=== PATIENT | male | born 1970 | race Asian ===

== ENCOUNTER 2016-07-10 19:55 | Emergency (ER) | payer BC ==
[~2016-07-10] VITALS: Ht 177.8 cm; Wt 95.3 kg
[2016-07-10 19:55] VITALS: BP 133/91; PULSE 78; RESP 18; TEMP 98.8; O2SAT 98
[2016-07-10] MEDS ORDERED: ACETAMINOPHEN 500 MG TABLET PO ONE (20:15)
[2016-07-10] MEDS ORDERED: NACL 0.9% 1,000 ML IV ONE (20:15)
[2016-07-10] MEDS ORDERED: PROCHLORPERAZINE EDISYLATE 10 MG/2 ML VIAL IVP ONE (20:15)
[2016-07-10 20:54] LABS: BASOPHILS # (AUTO) 0.1 K/uL (0.0-0.2); BASOPHILS % (AUTO) 0.8 % (0.0-2.0); EOSINOPHILS # (AUTO) 0.1 K/uL (0.0-0.4); EOSINOPHILS % (AUTO) 1.4 % (0.0-4.0); HEMATOCRIT 51.7 % (36-54); HEMOGLOBIN 16.9 g/dL (14.0-18.0); LYMPHOCYTES # (AUTO) 2.3 K/uL (1.0-5.5); LYMPHOCYTES % (AUTO) 27.9 % (20.5-51.5); MEAN CORPUSCULAR HEMOGLOBIN 31 pg (27-31); MEAN CORPUSCULAR HGB CONC 33 % (32-36); MEAN CORPUSCULAR VOLUME 93 fL (79.0-98.0); MONOCYTES # (AUTO) 0.5 K/uL (0.0-1.0); MONOCYTES % (AUTO) 6.5 % (1.7-9.3); NEUTROPHILS # (AUTO) 5.3 K/uL (1.8-7.7); NEUTROPHILS % (AUTO) 63.4 % (40.0-70.0); PLATELET COUNT (AUTO) 362 K/uL (130-430); RED BLOOD CELL COUNT(AUTO) 5.55 MIL/uL (4.2-6.2); RED CELL DISTRIBUTION WIDTH 12.1 % (9.0-15.0); WHITE BLOOD COUNT (AUTO) 8.3 K/uL (4.8-10.8)
[2016-07-10 21:12] LABS: ANION GAP 11 (5-15); CALCIUM 9.3 mg/dL (8.4-11.0); CHLORIDE 101 mmol/L (98-107); CREATININE 0.98 mg/dL (0.55-1.30); GLUCOSE 107 mg/dL (70-99); POTASSIUM 4.1 mmol/L (3.5-5.1); SODIUM SERUM 141 mmol/L (136-145); UREA NITROGEN, BLOOD 13 mg/dL (8-21)
[2016-07-10 21:18] LABS: GFR AFRICAN AMERICAN 106 mL/min (>90)
[2016-07-10 21:24] LABS: ALANINE AMINOTRANSFERASE 59 U/L (12-78); ALBUMIN 4.3 g/dL (3.4-4.8); TOTAL BILIRUBIN 0.8 mg/dL (0.0-1.0); TOTAL PROTEIN, SERUM 8.3 g/dL (6.4-8.3)
[2016-07-10] MEDS ORDERED: KETOROLAC TROMETHAMINE 30 MG VIAL IVP ONE (21:30)
[2016-07-10] MEDS ORDERED: DIPHENHYDRAMINE INJ 50 MG/ML VIAL IVP ONE (21:30)
[2016-07-10] MEDS ORDERED: LORazepam 2 MG/ML VIAL (FOR ER USE) IVP ONE (21:45)
[2016-07-10 22:00] LABS: ASPARTATE AMINOTRANSFERASE 45 U/L (10-37)
[2016-07-10 22:10] VITALS: BP 139/72; PULSE 78; RESP 18; TEMP 98.8; O2SAT 98
== END 2016-07-10 22:10 | disposition home or self-care (01) ==
LOC: SED 19:55
DX: G44.209 Tension-type headache, unspecified, not intractable (principal)
CPT/HCPCS: 36415; 70450; 80053; 84484; 85025; 93005; 96361; 96374; 96375; 99285; J0780; J1200; J1885; J2060; J7030

== ENCOUNTER 2020-09-13 23:37 | Emergency (ER) | payer BC, SELFPAY ==
[~2020-09-13] VITALS: Ht 172.7 cm; Wt 90.7 kg
[2020-09-13 23:40] VITALS: BP_SYST 145
--- NOTE | 2020-09-14 01:10 | NUR ---
Patient to ER bed 8 to gown for evaluation. Side rails up. Report given to Beena HAMMER.
--- NOTE | 2020-09-14 01:15 | NUR ---
Pt brought by , A&Ox4, pt presents to ER with urinary retention and lower abdominal pain , last urine output was this am, pt afebrile, skin pink and warm, VSS .
--- NOTE | 2020-09-14 01:40 | NUR ---
Dr West evaluating patient at bedside
[2020-09-14] MEDS ORDERED: LIDOCAINE 1% 10 MG/ML, 20 ML MDV INJ ONE (02:00)
--- NOTE | 2020-09-14 02:00 | NUR ---
16 # FR Tristan catheter with use of sterile technique. Immediate return of 300 cc urine noted. Bedside drainage bag placed below level of bladder. Urine sample collected and sent to lab. Pt tolerated procedure . Patient unable to toilet self.
[2020-09-14 02:12] LABS: BILIRUBIN,URINE 1+ (NEGATIVE); BLOOD, URINE 3+ (NEGATIVE); CLARITY/URINE CLOUDY (CLEAR); COLOR,URINE RED (YELLOW); GLUCOSE,URINE TRACE (NEGATIVE); KETONES,URINE TRACE (NEGATIVE); LEUKOCYTE ESTERASE ,URINE NEGATIVE (NEGATIVE); NITRITE, URINE NEGATIVE (NEGATIVE); PH,URINE 6.5 (5.0-8.0); PROTEIN URINE 3+ (NEGATIVE)
--- NOTE | 2020-09-14 02:15 | NUR ---
folley catheter leaking at this time , folley catheter removed as ordered by , awaiting for urologist Dr Larry to call back.
[2020-09-14 02:18] LABS: RBC,URINE >100 /HPF (0-3); WBC,URINE 0-3 /HPF (0-3)
[2020-09-14 02:20] LABS: BACTERIA,URINE MODERATE /HPF (None Seen); YEAST,URINE Few /HPF (None Seen)
--- NOTE | 2020-09-14 02:53 | NUR ---
Report given to Gallo HAMMER
--- NOTE | 2020-09-14 03:00 | NUR ---
YEIMY TO ASSUME CARE, PT CALM, ALERT, RESP UNLABORED, SKIN WARM AND DRY.
--- NOTE | 2020-09-14 03:20 | NUR ---
OFF TO CT VIA WHEELCHAIR, PT CALM, ALERT, NO DISTRESS
--- NOTE | 2020-09-14 04:20 | NUR ---
OFF TO ULTRASOUND WALKING STEADY
--- NOTE | 2020-09-14 05:15 | NUR ---
REPOSITIONED FOR COMFORT, CALM, ALERT, NO DISTRESS
--- NOTE | 2020-09-14 06:19 | NUR ---
LABS OBTAINED, ALERT, RESTLESS, DENIES CP/SOB. TOLERATED WELL, NO CHANGE IN MENTATION
--- NOTE | 2020-09-14 06:27 | NUR ---
UROLOGY CART PLACED AT BEDSIDE ORDERED BY UROLOGIST
[2020-09-14 06:30] LABS: BASOPHILS % (AUTO) 0.7 % (0.0-2.0); EOSINOPHILS # (AUTO) 0.1 K/uL (0.0-0.4); HEMATOCRIT 44.7 % (36-54); HEMOGLOBIN 15.3 g/dL (14.0-18.0); LYMPHOCYTES # (AUTO) 1.5 K/uL (1.0-5.5); LYMPHOCYTES % (AUTO) 21.9 % (20.5-51.5); MEAN CORPUSCULAR HEMOGLOBIN 32 pg (27-31); MEAN CORPUSCULAR HGB CONC 34 % (32-36); MEAN CORPUSCULAR VOLUME 93 fL (79.0-98.0); MONOCYTES # (AUTO) 0.4 K/uL (0.0-1.0); MONOCYTES % (AUTO) 6.6 % (1.7-9.3); NEUTROPHILS # (AUTO) 4.8 K/uL (1.8-7.7); NEUTROPHILS % (AUTO) 69.8 % (40.0-70.0); PLATELET COUNT (AUTO) 280 K/uL (130-430); RED BLOOD CELL COUNT(AUTO) 4.83 MIL/uL (4.2-6.2); RED CELL DISTRIBUTION WIDTH 12.7 % (9.0-15.0); WHITE BLOOD COUNT (AUTO) 6.8 K/uL (4.8-10.8)
--- NOTE | 2020-09-14 06:40 | NUR ---
UROLOGIST AT BEDSIDE TO ASSESS
[2020-09-14 06:41] LABS: CREATININE 1.06 mg/dL (0.55-1.30); POTASSIUM 3.6 mmol/L (3.5-5.1)
[2020-09-14 06:45] LABS: INR 0.9 (0.80-1.20); PROTHROMBIN TIME 10.1 SECS (9.5-12.5)
[2020-09-14 06:46] LABS: ALBUMIN 4.1 g/dL (3.4-4.8); TOTAL BILIRUBIN 0.5 mg/dL (0.0-1.0)
--- NOTE | 2020-09-14 07:06 | NUR ---
UPDATE TO , SHE WILL COME TO SECTION HAND
--- NOTE | 2020-09-14 07:28 | NUR ---
report received from Gallo HAMMER
--- NOTE | 2020-09-14 07:48 | NUR ---
Dr. Morgan at the bedside speaking with the pt and .
[2020-09-14 08:13] VITALS: BP_SYST 139
== END 2020-09-14 08:14 | disposition home or self-care (01) ==
LOC: SED 23:37 → SMU 09-14 05:52 → UNDOADMIN 09-14 05:52 → SED 09-14 08:14
DX: N28.89 Other specified disorders of kidney and ureter (principal); R33.9 Retention of urine, unspecified; Z20.822 Contact with and (suspected) exposure to COVID-19
CPT/HCPCS: 36415; 76376; 76857; 80053; 81000; 85025; 85610-TC; 85730-TC; 87086; 99285